=== PATIENT | female | born 1955 ===

== ENCOUNTER 2017-04-05 19:12 | Emergency (ER) | payer MEDICAID ==
[2017-04-05 19:12] VITALS: BMI 27.3
[2017-04-05 19:30] VITALS: RESP 18
[2017-04-05 20:14] LABS: BASO # 0.1 K/uL (0.0-0.2); BASO % 0.8 % (0.0-2.0); EOS # 0.2 K/uL (0.0-0.7); EOS % 1.7 % (0.0-4.0); HEMOGLOBIN 12.3 g/dL (11.0-16.0); LYMPH # 5.2 K/uL (1.0-4.3); LYMPH % 43.8 % (20.0-40.0); MEAN CELL VOLUME 88.2 fL (81.0-99.0); MEAN CORPUSCULAR HEMOGLOBIN 30.3 pg (27.0-31.0); MEAN CORPUSCULAR HGB CONC 34.4 g/dL (33.0-37.0); MEAN PLATELET VOLUME 9.4 fL (7.2-11.7); MONO # 0.5 K/uL (0.0-0.8); MONO % 3.9 % (0.0-10.0); NEUT # 5.9 K/uL (1.8-7.0); NEUT % 49.8 % (50.0-75.0); NRBC % 0.1 % (0.0-2.0); RBC 4.06 Mil/uL (3.80-5.20); RED CELL DISTRIBUTION WIDTH 13.6 % (11.5-14.5); WHITE BLOOD COUNT 11.9 K/uL (4.8-10.8)
[2017-04-05 20:21] LABS: ALBUMIN 4.6 g/dL (3.5-5.0)
[2017-04-05 20:23] LABS: SQUAMOUS EPITHIAL 1 /hpf (0-5); URINE BACTERIA RARE (<OCC); URINE BILIRUBIN NEGATIVE (NEGATIVE); URINE BLOOD NEGATIVE (NEGATIVE); URINE CLARITY Clear (Clear); URINE COLOR Yellow (YELLOW); URINE GLUCOSE (UA) NORMAL (Normal); URINE LEUKOCYTE ESTERASE 2+ Leu/uL (Negative); URINE NITRATE POSITIVE (NEGATIVE); URINE PROTEIN NEGATIVE (NEGATIVE); URINE UROBILINOGEN NORMAL mg/dL (0.2-1.0)
[2017-04-05 20:24] LABS: ALB/GLOB RATIO 1.4 (1.0-2.1); ALT/SGPT 46 U/L (9-52); AST/SGOT 28 U/L (14-36); BLOOD UREA NITROGEN 15 mg/dL (7-17); GFR AFRICAN-AMERICAN > 60; GFR NON-AFRICAN AMERICAN > 60
[2017-04-05 20:25] LABS: CALCIUM 9.7 mg/dl (8.6-10.4)
--- NOTE | 2017-04-05 22:12 | C.PDOC ---
History Of Present Illness 61 year old female who presents to the ER with a complaint of a dull aching headache. Patient had a Hx of HTN and reports good compliance with her medication. Denies chest pain, nausea, vomiting, or SOB. Time Seen by Provider: 04/05/17 19:49 Chief Complaint (Nursing): High Blood Pressure History Per: Patient History/Exam Limitations: no limitations Onset/Duration Of Symptoms: Days Current Symptoms Are (Timing): Still Present Associated Symptoms: denies: Chest Pain, Dyspnea, Dizziness Quality Of Symptoms: Asymptomatic Exacerbating Factor(s): Pos: None Recent travel outside of the [place]: No Past Medical History Reviewed: Historical Data, Nursing Documentation, Vital Signs Vital Signs: Last Vital Signs Temp 98.0 F 04/05/17 22:20 Pulse 70 04/05/17 22:20 Resp 18 04/05/17 22:20 BP 134/78 04/05/17 22:20 Pulse Ox 100 04/05/17 22:20 - Medical History PMH: HTN, Hypercholesterolemia, Hyperlipidemia Surgical History: No Surg Hx Family History: States: Unknown Family Hx - Social History Hx Alcohol Use: No - Immunization History Hx Tetanus Toxoid Vaccination: No Hx Influenza Vaccination: No Hx Pneumococcal Vaccination: No Review Of Systems Constitutional: Negative for: Fever, Chills Cardiovascular: Negative for: Chest Pain, Palpitations Respiratory: Negative for: Shortness of Breath Gastrointestinal: Negative for: Nausea, Vomiting Neurological: Positive for: Headache Physical Exam - Physical Exam Appears: Non-toxic, No Acute Distress Skin: Normal Color, Warm, Dry Head: Atraumatic, Normacephalic Eye(s): bilateral: Normal Inspection, PERRL, EOMI Oral Mucosa: Moist Neck: Normal, Supple Chest: Symmetrical, No Tenderness Cardiovascular: Rhythm Regular, No Murmur Respiratory: Normal Breath Sounds, No Rales, No Rhonchi, No Wheezing Gastrointestinal/Abdominal: Soft, No Tenderness Neurological/Psych: Oriented x3, Normal Speech, Normal Cognition ED Course And Treatment - Laboratory Results Result Diagrams: 04/05/17 20:08 04/05/17 20:08 Lab Interpretation: Abnormal (mild leukocytosis) ECG: Interpreted By Wy ECG Rhythm: Sinus Rhythm ECG Interpretation: Normal Rate From EC O2 Sat by Pulse Oximetry: 99 Pulse Ox Interpretation: Normal Progress Note: AMLODIPINE, TYLENOL, TORADOL iv Reevaluation Time: 22:16 Reassessment Condition: Improved Medical Decision Making Medical Decision Making: mild headache without neurological symptoms improved with addition labetolol PO Add Amlodipine PO and f/u with PMD LOW susp of CVA- head CT deferred Disposition Doctor Will See Patient In The: Office Counseled Patient/Family Regarding: Studies Performed, Diagnosis - Disposition Referrals: Shaik Hyde MD [Staff Provider] - Disposition: HOME/ ROUTINE Disposition Time: 22:17 Condition: GOOD Additional Instructions: Sigue Ibuprofeno 600 mg o' Tylenol 975 mg para stroud shana de romain, cada 6 horas Sigue Amlodipina 5 mg diario EN ADDICION' DEL Irbesartan [address] Hyde en menos de 2 semanas para checkar stroud pression marilyn Prescriptions: amLODIPine [Norvasc] 5 mg PO DAILY #30 tab Instructions: Diabetes Mellitus Type 2 in Adults (ED), Acute Headache (ED), Hypertension (ED) Forms: [employer] (Macanese) Print Language: KISWAHILI - Clinical Impression Clinical Impression: Hypertension, Diabetes - Scribe Statement The provider has reviewed the documentation as recorded by the Scribe Juan Carlos Prasad All medical record entries made by the Scribe were at my direction and personally dictated by me. I have reviewed the chart and agree that the record accurately reflects my personal performance of the history, physical exam, medical decision making, and the department course for this patient. I have also personally directed, reviewed, and agree with the discharge instructions and disposition.
[2017-04-05 22:21] VITALS: BP 134/78; PULSE 70; TEMP 98
[2017-04-06 03:13] VITALS: O2SAT 99
--- NOTE | 2017-04-06 07:51 | RAD ---
HISTORY: code stroke COMPARISON: 02/10/2016 FINDINGS: LUNGS: Mild venous congestion. Right hilar prominence. Patchy increased markings at the left lung base with questionable trace left pleural effusion. PLEURA: As above. CARDIOVASCULAR: Normal. OSSEOUS STRUCTURES: No significant abnormalities. VISUALIZED UPPER ABDOMEN: Normal. OTHER FINDINGS: None. IMPRESSION: Mild venous congestion. Right hilar prominence. Patchy increased markings at the left lung base with questionable trace left pleural effusion.
--- NOTE | 2017-04-08 13:09 | CARD ---
APPROVED REPORT EKG Measurement Heart [id number] CO [id number] <Conclusion> Normal sinus rhythm Normal ECG
== END 2017-04-05 22:30 | disposition home or self-care (01) ==
LOC: C.ER 19:12
DX: I10 Essential (primary) hypertension (principal); E11.9 Type 2 diabetes mellitus without complications
CPT/HCPCS: 71010; 80053; 81001; 85025; 93005; 96374; 99285; J1885

== ENCOUNTER 2017-04-11 11:12 | Emergency (ER) | payer MEDICAID ==
[2017-04-11 11:13] VITALS: BMI 27.3
[2017-04-11 11:16] VITALS: TEMP 97.8
[2017-04-11 12:46] LABS: BASO # 0.1 K/uL (0.0-0.2); BASO % 0.8 % (0.0-2.0); EOS # 0.2 K/uL (0.0-0.7); EOS % 1.4 % (0.0-4.0); HEMATOCRIT 36.6 % (34.0-47.0); LYMPH # 4.6 K/uL (1.0-4.3); LYMPH % 39.2 % (20.0-40.0); MEAN CELL VOLUME 88.4 fL (81.0-99.0); MEAN CORPUSCULAR HEMOGLOBIN 29.4 pg (27.0-31.0); MEAN CORPUSCULAR HGB CONC 33.3 g/dL (33.0-37.0); MEAN PLATELET VOLUME 9.3 fL (7.2-11.7); MONO # 0.5 K/uL (0.0-0.8); MONO % 4.2 % (0.0-10.0); RED CELL DISTRIBUTION WIDTH 13.6 % (11.5-14.5); WHITE BLOOD COUNT 11.8 K/uL (4.8-10.8)
--- NOTE | 2017-04-11 12:49 | CT ---
PROCEDURE: CT HEAD WITHOUT CONTRAST. HISTORY: Headache/ dizziness COMPARISON: None available. TECHNIQUE: Axial computed tomography images were obtained through the head/brain without intravenous contrast. Radiation dose: Total exam DLP = 867.19 mGy-cm. This CT exam was performed using one or more of the following dose reduction techniques: Automated exposure control, adjustment of the mA and/or kV according to patient size, and/or use of iterative reconstruction technique. FINDINGS: HEMORRHAGE: No intracranial hemorrhage. BRAIN: No mass effect or edema. The calle-white matter differentiation appears intact. Please note that MRI with diffusion imaging is more sensitive in the detection of acute ischemic event. VENTRICLES: No hydrocephalus. CALVARIUM: Unremarkable. PARANASAL SINUSES: Unremarkable as visualized. No significant inflammatory changes. MASTOID AIR CELLS: Unremarkable as visualized. No inflammatory changes. OTHER FINDINGS: None. IMPRESSION: No acute intracranial pathology identified.
[2017-04-11 12:56] LABS: ALB/GLOB RATIO 1.3 (1.0-2.1); ALKALINE PHOSPHATASE 72 U/L (38-126); ALT/SGPT 37 U/L (9-52); AST/SGOT 37 U/L (14-36); BILIRUBIN,TOTAL 1.1 mg/dL (0.2-1.3); BLOOD UREA NITROGEN 18 mg/dL (7-17); CALCIUM 9.3 mg/dl (8.6-10.4); CARBON DIOXIDE 28 mmol/L (22-30); CHLORIDE 92 mmol/L (98-107); GFR AFRICAN-AMERICAN > 60; GLUCOSE,RANDOM 63 mg/dL (65-105); POTASSIUM 4.7 mmol/L (3.6-5.2); SODIUM 141 mmol/L (132-148); TOTAL PROTEIN 8.3 g/dL (6.3-8.3)
[2017-04-11 12:59] LABS: RBC URINE 1 /hpf (0-3); URINE BACTERIA RARE (<OCC); URINE BILIRUBIN NEGATIVE (NEGATIVE); URINE BLOOD NEGATIVE (NEGATIVE); URINE COLOR Yellow (YELLOW); URINE GLUCOSE (UA) NORMAL (Normal); URINE KETONE NEGATIVE (NEGATIVE); URINE LEUKOCYTE ESTERASE 2+ Leu/uL (Negative); URINE PROTEIN NEGATIVE (NEGATIVE); URINE UROBILINOGEN NORMAL mg/dL (0.2-1.0); WBC URINE 18 /hpf (0-5)
--- NOTE | 2017-04-11 13:43 | C.PDOC ---
History Of Present Illness Patient is a 61 year old female presents to ED for evaluation of generalized weakness, headache, dizziness, and nausea since last night. Patient states that she has history of headaches but has not had headache recently. (+) photophobia. Otherwise, denies any chest pain, shortness of breath, cough, change in sensation, vomiting, abdominal pain, fever, chills, or any other associated symptoms at this time. Time Seen by Provider: 04/11/17 11:31 Chief Complaint (Nursing): Headache History Per: Patient History/Exam Limitations: no limitations Onset/Duration Of Symptoms: Days (1) Current Symptoms Are (Timing): Still Present Quality: Aching Associated Symptoms: Photophobia, Nausea. denies: Blurred Vision, Vomiting, Extremity Weakness Recent travel outside of the [place]: No Additional History Per: Patient Past Medical History Reviewed: Historical Data, Nursing Documentation, Vital Signs Vital Signs: Last Vital Signs Temp 97.8 F 04/11/17 11:15 Pulse 81 04/11/17 14:55 Resp 18 04/11/17 14:55 BP 112/58 L 04/11/17 14:55 Pulse Ox 97 04/11/17 14:55 - Medical History PMH: HTN, Hypercholesterolemia, Hyperlipidemia Family History: States: Unknown Family Hx - Social History Hx Alcohol Use: No - Immunization History Hx Tetanus Toxoid Vaccination: No Hx Influenza Vaccination: No Hx Pneumococcal Vaccination: No Review Of Systems Except As Marked, All Systems Reviewed And Found Negative. Constitutional: Positive for: Weakness. Negative for: Fever, Chills Cardiovascular: Negative for: Chest Pain, Palpitations, Light Headedness Respiratory: Negative for: Cough, Shortness of Breath Gastrointestinal: Positive for: Nausea. Negative for: Vomiting, Abdominal Pain , Diarrhea Skin: Negative for: Rash, Bruising Neurological: Positive for: Headache, Dizziness. Negative for: Weakness, Numbness Physical Exam - Physical Exam Appears: Non-toxic, Other (uncomfortable) Skin: Normal Color, Warm, Dry Head: Atraumatic, Normacephalic Eye(s): bilateral: EOMI, Other (photophobic) Oral Mucosa: Moist Neck: Normal ROM, Supple Cardiovascular: Rhythm Regular, No Murmur Respiratory: Normal Breath Sounds, No Rales, No Rhonchi, No Wheezing Gastrointestinal/Abdominal: Soft, No Tenderness Extremity: Bilateral: Atraumatic, Normal ROM Neurological/Psych: Oriented x3, Normal Speech, Normal Cognition, Other (neuro intact, no focal deficits) ED Course And Treatment - Laboratory Results Result Diagrams: 04/11/17 12:41 04/11/17 12:41 ECG: Interpreted By Me, Viewed By Me ECG Rhythm: Sinus Rhythm ECG Interpretation: No Acute Changes Rate From EC (bpm) O2 Sat by Pulse Oximetry: 100 (RA) Pulse Ox Interpretation: Normal - CT Scan/US Head CT Other Rad Studies (CT/US): Read By Radiologist, Radiology Report Reviewed CT/US Interpretation: FINDINGS: HEMORRHAGE: No intracranial hemorrhage. BRAIN : No mass effect or edema. The calle-white matter differentiation appears intact. Please note that MRI with diffusion imaging is more sensitive in the detection of acute ischemic event. VENTRICLES: No hydrocephalus. CALVARIUM: Unremarkable. PARANASAL SINUSES: Unremarkable as visualized. No significant inflammatory changes. MASTOID AIR CELLS: Unremarkable as visualized. No inflammatory changes. OTHER FINDINGS: None. IMPRESSION: No acute intracranial pathology identified. Progress Note: Blood work, urinalysis, EKG, head CT ordered and reviewed. Patient was treated with Reglan. On reassessment, patient is resting comfortably , reports feeling better, with improvement of headache. No neurologic deficit, rash, fever, or nuchal rigidity. Patient was instructed to follow up with physician/clinic in 1-2 days. Disposition - Disposition Disposition: HOME/ ROUTINE Disposition Time: 15:11 Condition: STABLE Additional Instructions: Follow up with PMD within 1-2 days. Return to ED if feel worse. Prescriptions: Metoclopramide [Reglan] 1 tab PO TID PRN #25 tab PRN Reason: Headache Instructions: General Headache (ED) Forms: [employer] [employer] (Qatari) - Clinical Impression Clinical Impression: Headache - PA / COMPUTER SUPPORT ANALYST / Resident Statement MD/DO has reviewed & agrees with the documentation as recorded. - Scribe Statement The provider has reviewed the documentation as recorded by the Griseliblon Silva All medical record entries made by the Scribe were at my direction and personally dictated by me. I have reviewed the chart and agree that the record accurately reflects my personal performance of the history, physical exam, medical decision making, and the department course for this patient. I have also personally directed, reviewed, and agree with the discharge instructions and disposition.
[2017-04-11 13:44] VITALS: RESP 18
[2017-04-11 14:56] VITALS: BP 112/58; PULSE 81
[2017-04-11 15:13] VITALS: O2SAT 100
--- NOTE | 2017-04-23 20:02 | CARD ---
APPROVED REPORT EKG Measurement Heart [id number] [place] 164P5 [id number] <Conclusion> Normal sinus rhythm Minimal voltage criteria for LVH, may be normal variant Borderline ECG
== END 2017-04-11 15:15 | disposition home or self-care (01) ==
LOC: C.ER 11:12
DX: R51 Headache (principal)
CPT/HCPCS: 70450; 80053; 81001; 82948; 85025; 85651; 96374; 99285; J2765

== ENCOUNTER 2017-10-28 18:03 | Emergency (ER) | payer MEDICAID ==
[2017-10-28 18:04] VITALS: BMI 27.3
--- NOTE | 2017-10-28 20:18 | C.PDOC ---
History Of Present Illness 62 year old female presents to the emergency department with complaints of elevated blood pressure that doesn't subside, an irregularly fast heartbeat, and pressure in the chest and neck. Sbe describes the chest pain as worse on her left side. Patient reports that she takes medication for her blood pressure. Patient reports that she is diabetic and takes medication. She denies coughing, fever, nausea, vomiting, diarrhea. She states that she has a family history of myocardial infarction. She confirms that she smokes about a pack every three days. Patient denies taking allergy or cold medications. Time Seen by Provider: 10/28/17 20:18 Chief Complaint (Nursing): Palpitations History Per: Patient, Family Onset/Duration Of Symptoms: Days (x1) Current Symptoms Are (Timing): Still Present Quality: Pressure (in the chest and neck area. ), "Pain" (in her neck) Associated Symptoms: denies: Nausea, Other (cough, fever, vomiting. ) Past Medical History Vital Signs: Last Vital Signs Temp 97.4 F L 10/28/17 23:17 Pulse 79 10/28/17 23:17 Resp 20 10/28/17 23:17 BP 126/67 10/28/17 23:17 Pulse Ox 96 10/28/17 23:25 - Medical History PMH: Diabetes, HTN, Hypercholesterolemia, Hyperlipidemia Surgical History: No Surg Hx Family History: States: No Known Family Hx - Social History Hx Tobacco Use: Yes (one pack every three days) Hx Alcohol Use: No Hx Substance Use: No - Immunization History Hx Tetanus Toxoid Vaccination: No Hx Influenza Vaccination: Yes Hx Pneumococcal Vaccination: No Review Of Systems Constitutional: Positive for: Sweats. Negative for: Fever Cardiovascular: Positive for: Chest Pain, Palpitations, Other (chest pressure) Respiratory: Negative for: Cough Gastrointestinal: Negative for: Nausea, Vomiting Neurological: Positive for: Headache Physical Exam - Physical Exam Appears: Non-toxic, No Acute Distress Skin: Normal Color Head: Normacephalic Eye(s): bilateral: Normal Inspection Neck: Supple Chest: Symmetrical, Tenderness (left side parasternal tenderness) Cardiovascular: Rhythm Regular Respiratory: Normal Breath Sounds Gastrointestinal/Abdominal: Normal Exam, Soft, No Tenderness Extremity: Normal ROM Neurological/Psych: Oriented x3, Normal Speech, Normal Cognition ED Course And Treatment - Laboratory Results Result Diagrams: 10/28/17 21:05 10/28/17 21:05 ECG: Interpreted By Me, Viewed By Me Interpretation Of ECG: normal sinus rhythm, normal intervals, normal ST segments , minimum voltage criteria LVH, no ectopy. Rate From EC O2 Sat by Pulse Oximetry: 96 (RA) Pulse Ox Interpretation: Normal - Radiology CXR: Interpreted by Me, Viewed By Me CXR Interpretation: Yes: No Acute Disease, Cardiomegaly (borderline). No: Infiltrates Medical Decision Making Medical Decision Making: Plan: EKG Labs CXR Disposition - Disposition Referrals: [facility] [Outside] Disposition: HOME/ ROUTINE Disposition Time: 04:30 Condition: FAIR Instructions: Costochondritis, Palpitations Forms: [employer] (Mauritian) Print Language: KOREAN - Clinical Impression Clinical Impression: Palpitations - Scribe Statement The provider has reviewed the documentation as recorded by the Neva Garcia Provider Attestation: All medical record entries made by the Griselibe were at my direction and personally dictated by me. I have reviewed the chart and agree that the record accurately reflects my personal performance of the history, physical exam, medical decision making, and the department course for this patient. I have also personally directed, reviewed, and agree with the discharge instructions and disposition.
[2017-10-28 21:09] LABS: BASO # 0.1 K/uL (0.0-0.2); EOS # 0.1 K/uL (0.0-0.7); EOS % 0.8 % (0.0-4.0); LYMPH # 5.1 K/uL (1.0-4.3); LYMPH % 38.7 % (20.0-40.0); MEAN CELL VOLUME 89.8 fL (81.0-99.0); MEAN CORPUSCULAR HEMOGLOBIN 30.5 pg (27.0-31.0); MEAN PLATELET VOLUME 9.1 fL (7.2-11.7); MONO # 0.5 K/uL (0.0-0.8); NEUT # 7.4 K/uL (1.8-7.0); NEUT % 55.5 % (50.0-75.0); RBC 3.94 Mil/uL (3.80-5.20); RED CELL DISTRIBUTION WIDTH 13.3 % (11.5-14.5); WHITE BLOOD COUNT 13.3 K/uL (4.8-10.8)
[2017-10-28 21:21] LABS: ALB/GLOB RATIO 1.3 (1.0-2.1); ALBUMIN 4.6 g/dL (3.5-5.0); ALT/SGPT 40 U/L (9-52); AST/SGOT 25 U/L (14-36); BLOOD UREA NITROGEN 22 mg/dL (7-17); GFR AFRICAN-AMERICAN > 60; GFR NON-AFRICAN AMERICAN > 60
[2017-10-28 23:18] VITALS: BP 126/67; PULSE 79; RESP 20; TEMP 97.4
[2017-10-28 23:26] VITALS: O2SAT 96
--- NOTE | 2017-10-29 09:04 | RAD ---
PROCEDURE: CHEST RADIOGRAPH, 1 VIEW HISTORY: Chest pain COMPARISON: 04/05/2017. FINDINGS: LUNGS: The lungs are clear. PLEURA: No pneumothorax or pleural fluid seen. CARDIOVASCULAR: Normal. OSSEOUS STRUCTURES: No significant abnormalities. VISUALIZED UPPER ABDOMEN: Normal. OTHER FINDINGS: None. IMPRESSION: No active pulmonary disease.
--- NOTE | 2017-10-31 22:23 | CARD ---
APPROVED REPORT EKG Measurement Heart [id number] [place] 158P31 [id number] <Conclusion> Normal sinus rhythm Minimal voltage criteria for LVH, may be normal variant Borderline ECG
== END 2017-10-28 23:29 | disposition home or self-care (01) ==
LOC: C.ER 18:03
DX: R00.2 Palpitations (principal)

== ENCOUNTER 2018-01-06 20:47 | Emergency (ER) | payer MEDICAID ==
[2018-01-06 20:47] VITALS: BMI 27.3
[2018-01-06 21:51] VITALS: BP 160/80; PULSE 74; RESP 20; TEMP 98.1; O2SAT 99
== END 2018-01-06 22:56 | disposition left against medical advice (07) ==
LOC: C.ER 20:47
DX: Z02.89 Encounter for other administrative examinations (principal); I10 Essential (primary) hypertension

== ENCOUNTER 2018-07-08 10:17 | Emergency (ER) | payer MEDICAID ==
[2018-07-08 10:17] VITALS: BMI 27.3
[2018-07-08 10:34] VITALS: TEMP 98.9
[2018-07-08] MEDS ORDERED: Albuterol-Ipratrop 3 mg / 0.5 (3 ml) UD INH STA ×2 (11:04→11:40)
[2018-07-08] MEDS ORDERED: Albuterol-Ipratrop 3 mg / 0.5 (3 ml) UD ONE ×2 (11:11→11:50)
--- NOTE | 2018-07-08 11:44 | RAD ---
Date of service: 07/08/2018 HISTORY: cough, copd COMPARISON: No prior. TECHNIQUE: 10/28/2017 FINDINGS: LUNGS: No active pulmonary disease. PLEURA: No significant pleural effusion identified. No pneumothorax apparent. CARDIOVASCULAR: There is presence of aortic atherosclerotic calcification on x-ray. Mild cardiomegaly-left ventricular enlargement configuration-similar appearing . No significant appearing pulmonary vascular congestion. OSSEOUS STRUCTURES: Thoracic spondylosis-similar. Left shoulder arthrosis. VISUALIZED UPPER ABDOMEN: Normal. OTHER FINDINGS: Calcified mediastinal lymph nodes probable. IMPRESSION: No active disease. No interval pathology noted.
--- NOTE | 2018-07-08 12:31 | C.PDOC ---
History Of Present Illness 63 year old female presents to the ED for evaluation of dry non-productive cough for 2 weeks. Admits to smoking 7 cigarettes a day. Denies fever, headache, abdominal pain, nausea, vomiting, and any other associated symptoms. Time Seen by Provider: 07/08/18 10:58 Chief Complaint (Nursing): Cough, Cold, Congestion History Per: Patient History/Exam Limitations: no limitations Onset/Duration Of Symptoms: Days Current Symptoms Are (Timing): Still Present Past Medical History Reviewed: Historical Data, Nursing Documentation, Vital Signs Vital Signs: Last Vital Signs Temp 98.9 F 07/08/18 10:29 Pulse 91 H 07/08/18 10:29 Resp 20 07/08/18 10:29 BP 150/81 07/08/18 10:29 Pulse Ox 98 07/08/18 10:29 - Medical History PMH: Asthma, Diabetes, HTN, Hypercholesterolemia, Hyperlipidemia Family History: States: Unknown Family Hx - Social History Hx Tobacco Use: Yes (one pack every three days) Hx Alcohol Use: No Hx Substance Use: No - Immunization History Hx Tetanus Toxoid Vaccination: No Hx Influenza Vaccination: Yes Hx Pneumococcal Vaccination: No Review Of Systems Except As Marked, All Systems Reviewed And Found Negative. Constitutional: Negative for: Fever Respiratory: Positive for: Cough (dry, non-productive.) Gastrointestinal: Negative for: Nausea, Vomiting, Abdominal Pain Physical Exam - Physical Exam Appears: Well, Non-toxic, No Acute Distress Skin: Normal Color, Warm, Dry Head: Atraumatic, Normacephalic Eye(s): bilateral: Normal Inspection Chest: Symmetrical, No Deformity Cardiovascular: Rhythm Regular, No Murmur Respiratory: No Rales, No Rhonchi, Wheezing (scant. ), No Other ((-) egophony.) Neurological/Psych: Oriented x3, Normal Speech ED Course And Treatment O2 Sat by Pulse Oximetry: 98 (RA) Pulse Ox Interpretation: Normal - Other Rad CXR X-Ray: Viewed By Me, Read By Radiologist Interpretation: FINDINGS: LUNGS: No active pulmonary disease. PLEURA: No significant pleural effusion identified. No pneumothorax apparent. CARDIOVASCULAR: There is presence of aortic atherosclerotic calcification on x- ray. Mild cardiomegaly-left ventricular enlargement configuration-similar appearing. . No significant appearing pulmonary vascular congestion. OSSEOUS STRUCTURES: Thoracic spondylosis-similar. Left shoulder arthrosis. VISUALIZED UPPER ABDOMEN: Normal. OTHER FINDINGS: Calcified mediastinal lymph nodes probable. IMPRESSION: No active disease. No interval pathology noted. Medical Decision Making Medical Decision Making: Plan: -CXR Duoneb Nebulizer treatment. Pepcid Prednisone Progress/Update: Patient stable for discharge home. Prescribed Ventolin HFA, Aerochamber, Deltasone, Pepcid, and Duoneb. copd exacerbation no pna/pnx smoking counseled Disposition Doctor Will See Patient In The: Office Counseled Patient/Family Regarding: Studies Performed, Diagnosis - Disposition Referrals: Hanane Adkins MD [Medical Doctor] - Disposition: HOME/ ROUTINE Disposition Time: 12:31 Condition: GOOD Additional Instructions: Prednisona 40 mg diario por 4 summers mas (empesando Miercoles 07/09) Duoneb tratamientos inhaladas 2 ampulas, 5-7 veces al tammie Almaz de fumar patricia puede Prescriptions: Albuterol HFA [Ventolin HFA 90 mcg/actuation (8 g)] 2 puff IH Q4H PRN #1 puff PRN Reason: copd Albuterol/Ipratropium [Duoneb 3 MG/3 Ml-0.5 MG/3 Ml 3 Ml] 6 ml IH Q4H PRN #100 neb PRN Reason: asthma Famotidine [Pepcid] 20 mg PO HS #20 tab Prednisone [Deltasone] 40 mg PO DAILY #8 tablet Spacer, Inhalation [Aerochamber] 1 dev IH DAILY #1 dev Instructions: Chronic Obstructive Pulmonary Disease (COPD), Including Emphysema Forms: [employer] (Divehi) Print Language: THAI - Clinical Impression Clinical Impression: COPD (chronic obstructive pulmonary disease) - Scribe Statement The provider has reviewed the documentation as recorded by the Scribe (Tereza Oliva) Provider Attestation: All medical record entries made by the Scribe were at my direction and personally dictated by me. I have reviewed the chart and agree that the record accurately reflects my personal performance of the history, physical exam, medical decision making, and the department course for this patient. I have also personally directed, reviewed, and agree with the discharge instructions and disposition.
[2018-07-08 13:07] VITALS: BP 129/72; PULSE 95; RESP 22
[2018-07-08 17:32] VITALS: O2SAT 98
== END 2018-07-08 13:07 | disposition home or self-care (01) ==
LOC: C.ER 10:17
DX: J44.9 Chronic obstructive pulmonary disease, unspecified (principal); F17.210 Nicotine dependence, cigarettes, uncomplicated

== ENCOUNTER 2018-07-10 11:27 | Observation (INO) | payer BC, MEDICAID ==
[2018-07-10 11:27] VITALS: BMI 27.3
[2018-07-10] MEDS ORDERED: Sodium Chloride 0.9% 500 ML IV STA (13:08)
[2018-07-10] MEDS ORDERED: Albuterol 0.083% Inhal Sol (2.5 mg/3 mL) UD IH STA ×2 (13:13)
[2018-07-10] MEDS ORDERED: Albuterol-Ipratrop 3 mg / 0.5 (3 ml) UD INH STA (13:13)
[2018-07-10] MEDS ORDERED: Sodium Chloride 0.9% 0 ML ONE (13:32)
[2018-07-10 13:47] LABS: BASO # 0.1 K/uL (0.0-0.2); BASO % 0.3 % (0.0-2.0); EOS # 0.1 K/uL (0.0-0.7); EOS % 0.3 % (0.0-4.0); HEMOGLOBIN 12.3 g/dL (11.0-16.0); LYMPH # 4.8 K/uL (1.0-4.3); LYMPH % 26.6 % (20.0-40.0); MEAN CELL VOLUME 91.1 fL (81.0-99.0); MEAN CORPUSCULAR HEMOGLOBIN 31.5 pg (27.0-31.0); MEAN CORPUSCULAR HGB CONC 34.6 g/dL (33.0-37.0); MEAN PLATELET VOLUME 9.2 fL (7.2-11.7); MONO # 0.7 K/uL (0.0-0.8); MONO % 4.1 % (0.0-10.0); NEUT # 12.3 K/uL (1.8-7.0); NEUT % 68.7 % (50.0-75.0); RBC 3.9 Mil/uL (3.80-5.20); RED CELL DISTRIBUTION WIDTH 13.7 % (11.5-14.5); WHITE BLOOD COUNT 17.9 K/uL (4.8-10.8)
[2018-07-10] MEDS ORDERED: Sodium Chloride 0.9% 500 ML IV ONE (13:49)
--- NOTE | 2018-07-10 13:51 | C.PDOC ---
History Of Present Illness 63 y/o female,w/PMhx of asthma, presents to the ER complaining of persistent productive cough which has been becoming gradually worse over the past few months. Patient states that she was seen for similar symptoms in the ER 2 days ago, she was prescribed Prednisone, Nebulizers, and Pepcid. She notes that she smokes 6 cigarettes per day, however she has not smoked for the past 3 days.Denies having CP,SOB, fever, chills, nausea, and vomiting. Time Seen by Provider: 07/10/18 12:18 Chief Complaint (Nursing): Cough, Cold, Congestion History Per: Patient History/Exam Limitations: no limitations Onset/Duration Of Symptoms: Days Current Symptoms Are (Timing): Still Present Severity: Moderate Past Medical History Reviewed: Historical Data, Nursing Documentation, Vital Signs Vital Signs: Last Vital Signs Temp 99.3 F 07/10/18 11:48 Pulse 95 H 07/10/18 11:48 Resp 18 07/10/18 11:48 BP 147/79 07/10/18 11:48 Pulse Ox 98 07/10/18 11:48 - Medical History PMH: Asthma, Bronchitis, Diabetes, HTN, Hypercholesterolemia, Hyperlipidemia Other Surgeries: Hx of surgeries Family History: States: No Known Family Hx - Social History Hx Tobacco Use: Yes (one pack every three days) Hx Alcohol Use: No Hx Substance Use: No - Immunization History Hx Tetanus Toxoid Vaccination: No Hx Influenza Vaccination: Yes (2018) Hx Pneumococcal Vaccination: No Review Of Systems Except As Marked, All Systems Reviewed And Found Negative. Constitutional: Negative for: Fever, Chills Cardiovascular: Negative for: Chest Pain Respiratory: Positive for: Cough. Negative for: Shortness of Breath Gastrointestinal: Negative for: Nausea, Vomiting Physical Exam - Physical Exam Appears: Other (coughing) Skin: Normal Color, Warm, Dry Head: Atraumatic, Normacephalic Eye(s): bilateral: Normal Inspection Ear(s): Bilateral: Normal Nose: Normal Oral Mucosa: Moist Throat: Normal, No Erythema, No Exudate Neck: Supple Chest: Symmetrical Cardiovascular: Rhythm Regular Respiratory: No Rales, No Rhonchi, Wheezing Neurological/Psych: Oriented x3, Normal Speech ED Course And Treatment - Laboratory Results Result Diagrams: 07/10/18 13:44 07/10/18 13:44 O2 Sat by Pulse Oximetry: 98 (RA) Pulse Ox Interpretation: Normal - Other Rad CXR X-Ray: Viewed By Me, Read By Radiologist Interpretation: Date of service: 07/10/2018. HISTORY: SOB, wheezaing, cough. COMPARISON: Comparison chest dated 07/08/2018. TECHNIQUE: Chest PA and lateral. FINDINGS: LUNGS: Poor inspiration with low lung volumes, crowded bronchovascular markings and mild bibasilar atelectasis. PLEURA: No significant pleural effusion identified. No pneumothorax apparent. CARDIOVASCULAR: Mild aortic atherosclerotic calcification present. Normal cardiac size. No pulmonary vascular congestion.. Questionable small mediastinal/suprahilar calcified lymph node. OSSEOUS STRUCTURES: Mild multilevel degenerative spondylosis of the thoracic spine. VISUALIZED UPPER ABDOMEN: Normal. OTHER FINDINGS: None. IMPRESSION: Poor inspiration with low lung volumes, crowded bronchovascular markings and mild bibasilar atelectasis Progress Note: Labs and CXR ordered. Patient treated with Albuterol, Solu-Medrol IV, and IV Fluids. 16:40 After treatment with 3 nebulizers, patient still has SOB and wheezing. She is coughing every few minutes. Patient has minimal improvement of symptoms. Case discussed with . Patient will be admitted to Telemetry for observation and breathing treatments. 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 - Scribe Statement The provider has reviewed the documentation as recorded by the Neva Chamorro Provider Attestation All medical record entries made by the Scribe were at my direction and personally dictated by me. I have reviewed the chart and agree that the record accurately reflects my personal performance of the history, physical exam, medical decision making, and the department course for this patient. I have also personally directed, reviewed, and agree with the discharge instructions and disposition. Decision To Admit - Pt Status Changed To: Hospital Disposition Of: Observation - . Bed Request Type: Telemetry Admitting Physician: Freddy Johnson Patient Diagnosis: COPD exacerbation
[2018-07-10] MEDS ORDERED: Albuterol 0.083% Inhal Sol (2.5 mg/3 mL) UD ONE ×2 (13:54→14:59)
[2018-07-10] MEDS ORDERED: Albuterol-Ipratrop 3 mg / 0.5 (3 ml) UD ONE (13:54)
[2018-07-10 13:59] LABS: INR 1.1; PROTHROMBIN TIME 11.6 SECONDS (9.7-12.2)
--- NOTE | 2018-07-10 14:03 | RAD ---
Date of service: 07/10/2018 HISTORY: SOB, wheezaing, cough COMPARISON: Comparison chest dated 07/08/2018. TECHNIQUE: Chest PA and lateral FINDINGS: LUNGS: Poor inspiration with low lung volumes, crowded bronchovascular markings and mild bibasilar atelectasis PLEURA: No significant pleural effusion identified. No pneumothorax apparent. CARDIOVASCULAR: Mild aortic atherosclerotic calcification present. Normal cardiac size. No pulmonary vascular congestion.. Questionable small mediastinal/suprahilar calcified lymph node OSSEOUS STRUCTURES: Mild multilevel degenerative spondylosis of the thoracic spine VISUALIZED UPPER ABDOMEN: Normal. OTHER FINDINGS: None. IMPRESSION: Poor inspiration with low lung volumes, crowded bronchovascular markings and mild bibasilar atelectasis
[2018-07-10 14:24] LABS: ALB/GLOB RATIO 1.5 (1.0-2.1); ALBUMIN 5.2 g/dL (3.5-5.0); BLOOD UREA NITROGEN 21 mg/dL (7-17); CALCIUM 10.1 mg/dl (8.6-10.4); GFR NON-AFRICAN AMERICAN > 60
[2018-07-10 14:26] LABS: ALT/SGPT 84 U/L (9-52); AST/SGOT 76 U/L (14-36)
--- NOTE | 2018-07-10 18:13 | CP.PCM.PN ---
Subjective - Date & Time of Evaluation Date of Evaluation: 07/10/18 Time of Evaluation: 18:12 - Subjective Subjective: H&P dictated #[id number] Objective - Vital Signs/Intake and Output Vital Signs (last 24 hours): Temp Pulse Resp BP Pulse Ox 97.8 F 78 18 131/72 95 07/10/18 17:36 07/10/18 17:36 07/10/18 17:36 07/10/18 17:36 07/10/18 17:36 - Labs Labs: 07/10/18 13:44 07/10/18 13:44 PT 11.6 SECONDS (9.7-12.2) 07/10/18 13:44 INR 1.1 07/10/18 13:44 APTT 26 SECONDS (21-34) 07/10/18 13:44
[2018-07-10] MEDS ORDERED: Dextrose 50% SYRINGE Inj (50 ml) IV PRN (19:17)
[2018-07-10] MEDS ORDERED: Glucagon Recombinant 1 mg Inj IM PRN (19:17)
[2018-07-10 19:24] VITALS: RESP 20
[2018-07-10] MEDS: (Novolin R) Insulin Human Regular 100 units/ml vial SC SCH ×2 (19:30→21:09)
[2018-07-10] MEDS: MethylPREDNISolone 40 mg Vial IVP SCH (22:45)
[2018-07-11 01:19] LABS: SQUAMOUS EPITHIAL 1 /hpf (0-5); URINE BILIRUBIN NEGATIVE (NEGATIVE); URINE BLOOD NEGATIVE (NEGATIVE); URINE CLARITY Clear (Clear); URINE COLOR Colorless (YELLOW); URINE GLUCOSE (UA) 3+ mg/dL (Normal); URINE LEUKOCYTE ESTERASE NEG Leu/uL (Negative); URINE PROTEIN NEGATIVE (NEGATIVE); URINE UROBILINOGEN NORMAL mg/dL (0.2-1.0)
[2018-07-11] MEDS: Albuterol-Ipratrop 3 mg / 0.5 (3 ml) UD INH SCH ×4 (01:50→19:43)
--- NOTE | 2018-07-11 03:41 | HP ---
CHIEF COMPLAINT: Persistent cough with pleuritic chest pain and shortness of breath for one month. HISTORY OF PRESENT ILLNESS: Ms. White is a 63-year-old female with past medical history of diabetes mellitus, hypertension, hyperlipidemia, asthma who has been following up with Dr. Adkins as primary care physician, came into the emergency room with complaints of progressive worsening of cough with clear sputum, pleuritic chest pain, and shortness of breath which has been persistent for more than a month. The patient was evaluated in the emergency room 2 days ago and the patient was given prednisone and famotidine. After being treated with nebulizers, the patient was sent home. The patient returned into the emergency room today with persistent symptoms without any improvement in her symptoms. The patient claims that her symptoms started more than a month ago with fever and shortness of breath. Now, no fevers. She claims that she smokes but she stopped smoking about 3 days ago. Even after stopping smoking, she claims that her cough is persistent and not able to lie down flat at night keeping her up, and denies any headaches, dizziness. Denies any nausea, vomiting, abdominal pain, diarrhea, or constipation. Denies any urinary complaints. Denies any leg pain or leg cramps. Denies any neurologic symptoms. PAST MEDICAL HISTORY: As described, hypertension, diabetes mellitus, hyperlipidemia, asthma. PAST SURGICAL HISTORY: She underwent colon surgery. FAMILY HISTORY: Coronary artery disease in the father. PERSONAL HISTORY: She is single, having 5 children, lives alone. Unemployed. SOCIAL HISTORY: She smokes 7 cigarettes per day since she was 17 years old. Denies any alcohol or drug abuse. ALLERGIES: NO KNOWN DRUG ALLERGIES. MEDICATIONS: Her medications at home include Pepcid 20 mg p.o. at bedtime, DuoNeb high flow nebulizer, prednisone 40 mg daily, pravastatin 40 mg daily, metformin 1000 mg p.o. b.i.d., irbesartan 300 mg daily, NPH 45 units in the evening and 40 units in the morning, Norvasc 5 mg daily. REVIEW OF SYSTEMS: As described in history of present illness. All other systems reviewed and were found to be negative. PHYSICAL EXAMINATION: GENERAL: A middle-aged female, lying in bed, in no acute distress. VITAL SIGNS: Blood pressure 132/72, pulse 78, respirations 18, temperature 97.8 degrees Fahrenheit, O2 sat is 95% on room air. HEENT: Pupils are equal, round, and reacting to light and accommodation. Extraocular muscles are intact. No icterus. No oral thrush. No pharyngeal congestion. NECK: Supple. No JVD. LUNGS: Bilateral vesicular breath sounds. Bilateral wheezing heard. No crackles heard. CARDIOVASCULAR SYSTEM: S1, S2 present, regular. ABDOMEN: Soft, nontender. Bowel sounds present. No guarding. No rigidity. No rebound tenderness noted. CENTRAL NERVOUS SYSTEM: Alert, awake, and oriented x3. No focal deficits noted. EXTREMITIES: No edema. Palpable peripheral pulses. LABORATORY DATA: Labs done from the emergency room: WBC 17.9, hemoglobin 12.3, hematocrit 35.5, platelets 264. PT 11.6, INR 1.1, PTT 26. Sodium 140, potassium 4.5, chloride 102, bicarb 25, BUN 21, creatinine 0.5, glucose 178, calcium 10.1, magnesium 1.9, total bilirubin 1.1, AST 76, ALT 84, alkaline phosphatase 74, total protein 8.7, albumin 5.2. Chest x-ray negative for any infiltrate, mild bibasilar atelectasis, crowded bronchovascular markings. EKG, normal sinus rhythm at 75 beats per minute, no acute ST-T changes noted. ASSESSMENT: A middle-aged female with history of hypertension, diabetes mellitus, hyperlipidemia, asthma, admitted for persistent symptoms of cough with clear sputum, pleuritic chest pain, and wheezing, persistent, improved per nebulizer treatment. 1. Acute bronchitis with bronchospasm, rule out infiltrate. 2. Asthma with chronic obstructive pulmonary disease exacerbation. 3. Hypertension. 4. Diabetes mellitus. 5. Hyperlipidemia. PLAN: The patient is being admitted to telemetry. I will continue with nebulizer treatments, Solu-Medrol 40 mg IV every 8 hours, Singulair 10 mg daily, Protonix for GI prophylaxis. Give Rocephin and Zithromax pending culture results, legionella and mycoplasma titers. Blood pressure is stable, continue with irbesartan 300 mg daily and amlodipine 5 mg daily. Continue with Crestor 10 mg p.o. at bedtime. Sugars are running high, continue with metformin 1000 mg p.o. b.i.d., and NPH insulin 45 units in the evening and 40 units in the morning. Do Accu-cheks q.a.c. and at bedtime. We will check CT scan of the chest to rule out any infiltrate. We will obtain pulmonary evaluation. Freddy Johnson MD
[2018-07-11] MEDS: MethylPREDNISolone 40 mg Vial IVP SCH ×3 (05:03→21:20)
[2018-07-11] MEDS: (Novolin R) Insulin Human Regular 100 units/ml vial SC SCH ×4 (08:55→21:10)
[2018-07-11 08:56] LABS: BASO % 0.2 % (0.0-2.0); HEMOGLOBIN 12.1 g/dL (11.0-16.0); LYMPH # 2.8 K/uL (1.0-4.3); LYMPH % 14.5 % (20.0-40.0); MEAN CELL VOLUME 90.5 fL (81.0-99.0); MEAN CORPUSCULAR HEMOGLOBIN 31.2 pg (27.0-31.0); MEAN CORPUSCULAR HGB CONC 34.4 g/dL (33.0-37.0); MEAN PLATELET VOLUME 9.7 fL (7.2-11.7); MONO # 0.4 K/uL (0.0-0.8); MONO % 2.1 % (0.0-10.0); NEUT # 16.1 K/uL (1.8-7.0); NEUT % 83.2 % (50.0-75.0); RBC 3.87 Mil/uL (3.80-5.20); RED CELL DISTRIBUTION WIDTH 13.6 % (11.5-14.5); WHITE BLOOD COUNT 19.4 K/uL (4.8-10.8)
[2018-07-11 09:16] LABS: ALB/GLOB RATIO 1.5 (1.0-2.1); ALT/SGPT 94 U/L (9-52); AST/SGOT 61 U/L (14-36); BLOOD UREA NITROGEN 21 mg/dL (7-17); CALCIUM 10.1 mg/dl (8.6-10.4); GFR NON-AFRICAN AMERICAN > 60; HDL CHOLESTEROL 54 mg/dL (30-70)
[2018-07-11 09:27] LABS: LDL CHOLESTEROL 166 mg/dL (0-129)
--- NOTE | 2018-07-11 09:47 | CT ---
Date of service: 07/11/2018 PROCEDURE: CT Chest without contrast HISTORY: r/o infiltrate COMPARISON: None available. TECHNIQUE: Contiguous axial images were obtained through the chest without intravenous contrast enhancement. Sagittal and coronal reconstructions were performed. Radiation dose: Total exam DLP = 469.11 mGy-cm. This CT exam was performed using one or more of the following dose reduction techniques: Automated exposure control, adjustment of the mA and/or kV according to patient size, and/or use of iterative reconstruction technique. FINDINGS: LUNGS: There are linear shape opacities at the lower lobes/lung bases likely represents scar tissue or atelectasis. No evidence of consolidation in the upper lobes. There is 5 millimeter calcified nodule at the left upper lobe likely represent calcified granuloma. MEDIASTINUM: Unremarkable thoracic aorta. No aneurysm. The heart is mildly enlarged. Main pulmonary artery unremarkable. No vascular congestion. No lymphadenopathy. No aortic atherosclerotic calcification. PLEURA: No pleural fluid. No pneumothorax. BONES: No fracture. No destructive lesion. UPPER ABDOMEN: Grossly unremarkable. OTHER FINDINGS: The thyroid gland is normal in size. IMPRESSION: No CT evidence of pneumonia. Linear opacities at the lung bases likely scar tissue or atelectasis. Mild cardiomegaly.
[2018-07-11 09:55] LABS: LEGIONELLA AG URINE NEGATIVE (NEGATIVE)
[2018-07-11] MEDS ORDERED: Pneumococcal 23-Valent Vaccine IM ONE (10:00)
[2018-07-11] MEDS: (Novolin N) Insulin Human Isophane (NPH) 100 u/ml 10 ml vial SC SCH ×2 (10:54→17:30)
[2018-07-11] MEDS: Enoxaparin 40 mg Syringe SC SCH (10:55)
[2018-07-11] MEDS: Azithromycin 500 MG in Sodium Chloride 0.9% 250 ML IVPB SCH (10:58)
--- NOTE | 2018-07-11 11:01 | CP.PCM.PN ---
Subjective - Date & Time of Evaluation Date of Evaluation: 07/11/18 Time of Evaluation: 11:01 - Subjective Subjective: Progress note dictated #[id number] Objective - Vital Signs/Intake and Output Vital Signs (last 24 hours): Temp Pulse Resp BP Pulse Ox 98.1 F 81 20 136/58 L 95 07/11/18 07:55 07/11/18 08:02 07/11/18 07:55 07/11/18 07:55 07/11/18 08:02 Intake and Output: 07/11/18 07/11/18 06:59 18:59 Intake Total 1000 420 Balance 1000 420 - Medications Medications: Current Medications Albuterol/Ipratropium (Duoneb 3 Mg/0.5 Mg (3 Ml) Ud) 3 ml INH RQ6 [facility] Last Admin: 07/11/18 08:09 Dose: 3 ml Amlodipine Besylate (Norvasc) 5 mg PO DAILY [facility] Last Admin: 07/11/18 10:54 Dose: 5 mg Enoxaparin Sodium (Lovenox) 40 mg SC DAILY [facility] Last Admin: 07/11/18 10:55 Dose: 40 mg Azithromycin 500 mg/ Sodium (Chloride) 250 mls @ 250 mls/hr IVPB DAILY [facility]; Protocol Last Admin: 07/11/18 10:58 Dose: 250 mls/hr Ceftriaxone Sodium 1 gm/ (Sodium Chloride) 100 mls @ 100 mls/hr IVPB DAILY [facility]; Protocol Last Admin: 07/11/18 09:53 Dose: 100 mls/hr Insulin Human NPH (Novolin N) 40 unit SC QAM [facility] Last Admin: 07/11/18 10:54 Dose: 40 unit Insulin Human NPH (Novolin N) 45 unit SC QPM [facility] Insulin Human Regular (Novolin R) 0 unit SC ACHS [facility]; Protocol Last Admin: 07/11/18 08:55 Dose: 3 units Losartan Potassium (Cozaar) 100 mg PO DAILY [facility] Last Admin: 07/11/18 10:54 Dose: 100 mg Metformin HCl (Glucophage) 1,000 mg PO BID [facility] Last Admin: 07/11/18 10:54 Dose: 1,000 mg Metformin HCl (Glucophage) 1,000 mg PO BID [facility] Methylprednisolone (Solu-Medrol) 40 mg IVP Q8H [facility] Last Admin: 07/11/18 05:03 Dose: 40 mg Montelukast Sodium (Singulair) 10 mg PO HS [facility] Last Admin: 07/10/18 22:45 Dose: 10 mg Pantoprazole Sodium (Protonix Inj) 40 mg IVP DAILY [facility] Last Admin: 07/11/18 10:54 Dose: 40 mg Rosuvastatin Calcium (Crestor) 10 mg PO HS [facility] Last Admin: 07/10/18 22:45 Dose: 10 mg - Labs Labs: 07/11/18 08:00 07/11/18 08:00 PT 11.6 SECONDS (9.7-12.2) 07/10/18 13:44 INR 1.1 07/10/18 13:44 APTT 26 SECONDS (21-34) 07/10/18 13:44
[2018-07-11 11:16] LABS: MYCOPLASMA PNEUMONIAE IGM NEGATIVE (NEGATIVE)
[2018-07-11] MEDS ORDERED: Promethazine DM 6.25 mg-15 mg/5 ml Syrup PO PRN (12:00)
--- NOTE | 2018-07-11 20:28 | PN ---
DATE: 07/11/2018 SUBJECTIVE: The patient was seen and examined at bedside. The patient is still complaining of cough with clear sputum and pleuritic chest pain, but sneezing is less. Denies any other complaints of fever, nausea, vomiting or abdominal pain. All other systems reviewed and were found to be negative. PHYSICAL EXAMINATION: GENERAL: Middle-aged female, lying in bed, in no acute distress. VITAL SIGNS: Blood pressure 136/58, pulse 70, respiration 20, temperature 98.1 degrees Fahrenheit, O2 sats 97% on room air. HEENT: Pupils equal, round, and reacting to light and accommodation. Extraocular muscles are intact. No icterus. No pallor. No oral thrush. NECK: Supple. No JVD. LUNGS: Bilateral vesicular breath sounds. No wheezing. No rhonchi. CARDIOVASCULAR SYSTEM: S1 and S2 present, regular. ABDOMEN: Soft and nontender. Bowel sounds present. No guarding. No rigidity. No rebound tenderness noted. CENTRAL NERVOUS SYSTEM: Alert, awake, and oriented x3. No focal deficits noted. EXTREMITIES: No edema. Palpable peripheral pulses. MEDICATIONS: Include DuoNeb every 6 hours, amlodipine 5 mg daily, azithromycin 500 mg IV daily, Rocephin 1 g daily, Lovenox 40 mg subcu daily, insulin 40 units subcu every morning and 45 units every evening sliding scale coverage, Cozaar 100 mg daily, metformin 1000 mg p.o. b.i.d., Solu-Medrol 40 mg IV every 12 hours, Singulair 10 mg daily, Protonix 40 mg daily, Phenergan 5 mL p.o. every 6 hours p.r.n., Crestor 10 mg p.o. at bedtime. LABORATORY DATA: Labs done from this morning: WBC 19.4, hemoglobin 12.1, hematocrit 35.1, platelets 319. Sodium 137. potassium 4, chloride 99, bicarb 21, BUN 21, creatinine 0.6. Glucose 380 and 347. Hemoglobin A1c 8. Calcium 10.1, 3.6, magnesium 1.9. Total bili 0.8, AST 61, ALT 94, alkaline phosphate 81, total protein 8.4, albumin 5. Cholesterol 270, triglyceides 216. TSH 0.27. UA: 3+ glucose, Legionella negative, mycoplasma negative. CT chest is negative for any pneumonia. Linear opacities at the lung bases likely scar tissue or atelectasis. Mild cardiomegaly. EKG done on admission consisting with normal sinus rhythm at 75 beats per minute, no acute ST-T changes noted. ASSESSMENT AND PLAN: Elderly female with history of hypertension, hyperlipidemia, diabetes mellitus, asthma. Admitted for acute bronchitis with bronchospasm, pneumonia ruled out by CT, asthma exacerbation. We will continue with Solu-Medrol nebulizer treatments, Singulair. Give Protonix for gastrointestinal prophylaxis. Continue with empiric antibiotics with Rocephin and Zithromax. All the cultures are negative so far. Blood pressure is stable on current medications. Sugars are high as she is on prednisone. White blood cell count is elevated, probably secondary to steroids. Steroid dose is decreased from every 8 hours to every 12 hours. We will follow up with Pulmonary. Continue with deep venous thrombosis prophylaxis. Repeat labs in the morning. We will add further recommendations as her clinical course progresses. Freddy Johnson MD
--- NOTE | 2018-07-11 23:43 | CARD ---
APPROVED REPORT Date of service: 07/10/2018 EKG Measurement Heart [id number] <Conclusion> Normal sinus rhythm Normal ECG
[2018-07-12] MEDS: Albuterol-Ipratrop 3 mg / 0.5 (3 ml) UD INH SCH ×3 (08:00→20:36)
[2018-07-12 08:15] LABS: BASO # 0.1 K/uL (0.0-0.2); BASO % 0.3 % (0.0-2.0); EOS % 0.1 % (0.0-4.0); LYMPH # 2.5 K/uL (1.0-4.3); LYMPH % 14.8 % (20.0-40.0); MEAN CELL VOLUME 90.6 fL (81.0-99.0); MEAN CORPUSCULAR HGB CONC 34.2 g/dL (33.0-37.0); MEAN PLATELET VOLUME 9.7 fL (7.2-11.7); MONO # 0.7 K/uL (0.0-0.8); NEUT # 13.6 K/uL (1.8-7.0); NEUT % 80.8 % (50.0-75.0); RBC 3.55 Mil/uL (3.80-5.20); RED CELL DISTRIBUTION WIDTH 13.4 % (11.5-14.5); WHITE BLOOD COUNT 16.9 K/uL (4.8-10.8)
[2018-07-12 08:31] LABS: ALB/GLOB RATIO 1.6 (1.0-2.1); ALBUMIN 4.4 g/dL (3.5-5.0); ALT/SGPT 64 U/L (9-52); AST/SGOT 24 U/L (14-36); BLOOD UREA NITROGEN 27 mg/dL (7-17); CALCIUM 9.8 mg/dl (8.6-10.4); GFR NON-AFRICAN AMERICAN > 60
[2018-07-12] MEDS: (Novolin R) Insulin Human Regular 100 units/ml vial SC SCH ×4 (08:52→21:51)
--- NOTE | 2018-07-12 09:26 | CP.PCM.CON ---
History of Present Illness - History of Present Illness History of Present Illness: Patient is a 63-year-old female with PMHx of HTN, DM, HLD, and asthma who came to the ED with complaints of shortness of breath, cough with clear sputum production, and chest pain. History was obtained through daughter on the phone, and from chart review. She states that she was having cough, and SOB for more than a month for which she came to the ED 2 days ago, and given prednisone and famotidine. As her symptoms did not improve after discharge from ED, patient came back to the hospital with the same symptoms. She currently states that she her shortness of breath has improved, but still complains of cough with copious sputum production. Patient was resting comfortably in bed without any supplemental oxygen. She states that the nebulizer treatments have been helping her. Denies any fevers, chills, headaches, chest pain, or leg swelling currently. Chest CT 07/10 - No CT evidence of pneumonia. Linear opacities at the lung bases likely scar tissue or atelectasis. Mild cardiomegaly. CXR 07/10 - Crowded bronchovascular markings and mild bibasilar atelectasis PMHx: asthma, HTN, DM2, HLD PSHx: colon surgery Allergies: NKDA Family Hx: CAD in father Social Hx: smokes 7 cigarettes daily x46 years, denies alcohol or illicit drug use Review of Systems - Review of Systems All systems: reviewed and no additional remarkable complaints except (shortness of breath and cough) Past Patient History - Infectious Disease Hx of Infectious Diseases: None - Past Medical History & Family History Past Medical History?: Yes - Past Social History Smoking Status: Light Smoker < 10 Cigarettes Daily - CARDIAC Hx Hypercholesterolemia: Yes Hx Hypertension: Yes - PULMONARY Hx Asthma: Yes Hx Bronchitis: Yes - ENDOCRINE/METABOLIC Hx Endocrine Disorders: Yes Hx Diabetes Mellitus Type 2: Yes - INTEGUMENTARY Hx Dermatological Problems: Yes (SEE COMMENT) Other/Comment: EXCISION MASS OF BACK AND NECK AND RIGHT FLANK - MUSCULOSKELETAL/RHEUMATOLOGICAL Hx Musculoskeletal Disorders: Yes Hx Back Pain: Yes (HX: SCIATICA) - PSYCHIATRIC Hx Substance Use: No - SURGICAL HISTORY Hx Surgeries: Yes Other/Comment: Colon sx. - ANESTHESIA Hx Anesthesia: Yes Hx Anesthesia Reactions: No Meds Allergies/Adverse Reactions: Allergies Allergy/AdvReac Type Severity Reaction Status Date / Time No Known Allergies Allergy Verified 07/10/18 11:46 - Medications Medications: Current Medications Albuterol/Ipratropium (Duoneb 3 Mg/0.5 Mg (3 Ml) Ud) 3 ml INH RQ6 [facility] Last Admin: 07/11/18 19:43 Dose: 3 ml Amlodipine Besylate (Norvasc) 5 mg PO DAILY [facility] Last Admin: 07/11/18 10:54 Dose: 5 mg Enoxaparin Sodium (Lovenox) 40 mg SC DAILY [facility] Last Admin: 07/11/18 10:55 Dose: 40 mg Azithromycin 500 mg/ Sodium (Chloride) 250 mls @ 250 mls/hr IVPB DAILY [facility]; Protocol Last Admin: 07/11/18 10:58 Dose: 250 mls/hr Ceftriaxone Sodium 1 gm/ (Sodium Chloride) 100 mls @ 100 mls/hr IVPB DAILY [facility]; Protocol Last Admin: 07/11/18 09:53 Dose: 100 mls/hr Insulin Human NPH (Novolin N) 40 unit SC QAM [facility] Last Admin: 07/11/18 10:54 Dose: 40 unit Insulin Human NPH (Novolin N) 45 unit SC QPM [facility] Last Admin: 07/11/18 17:30 Dose: 45 units Insulin Human Regular (Novolin R) 0 unit SC ACHS [facility]; Protocol Last Admin: 07/11/18 21:10 Dose: Not Given Losartan Potassium (Cozaar) 100 mg PO DAILY [facility] Last Admin: 07/11/18 10:54 Dose: 100 mg Metformin HCl (Glucophage) 1,000 mg PO BID [facility] Last Admin: 07/11/18 17:31 Dose: 1,000 mg Methylprednisolone (Solu-Medrol) 40 mg IVP Q12 [facility] Last Admin: 07/11/18 21:20 Dose: 40 mg Montelukast Sodium (Singulair) 10 mg PO HS [facility] Last Admin: 07/11/18 21:20 Dose: 10 mg Pantoprazole Sodium (Protonix Inj) 40 mg IVP DAILY [facility] Last Admin: 07/11/18 10:54 Dose: 40 mg Pneumococcal Polyvalent Vaccine (Pneumovax 23 Vaccine) 0.5 ml IM .ONCE ONE Stop: 07/12/18 10:01 Promethazine HCl/Dextromethorphan (Phenergan Dm Syrup) 5 ml PO Q6H PRN PRN Reason: Cough Last Admin: 07/11/18 21:24 Dose: 5 ml Rosuvastatin Calcium (Crestor) 10 mg PO HS [facility] Last Admin: 07/11/18 21:20 Dose: 10 mg Physical Exam - Head Exam Head Exam: ATRAUMATIC, NORMOCEPHALIC - ENT Exam ENT Exam: Mucous Membranes Moist - Neck Exam Neck exam: Positive for: Normal Inspection - Respiratory Exam Respiratory Exam: Rhonchi, Wheezes - Cardiovascular Exam Cardiovascular Exam: REGULAR RHYTHM - GI/Abdominal Exam GI & Abdominal Exam: Normal Bowel Sounds Results - Vital Signs Recent Vital Signs: Last Vital Signs Temp 98 F 07/11/18 23:59 Pulse 71 07/12/18 07:39 Resp 20 07/11/18 23:59 BP 125/71 07/11/18 23:59 Pulse Ox 96 07/12/18 07:41 - Labs Result Diagrams: 07/12/18 08:03 07/12/18 08:03 Labs: Laboratory Results - last 24 hr 07/11/18 07/11/18 07/11/18 01:13 08:00 08:00 WBC RBC Hgb Hct MCV MCH MCHC RDW Plt Count MPV Neut % (Auto) Lymph % (Auto) [place] % (Auto) Eos % (Auto) Baso % (Auto) Neut # (Auto) Lymph # (Auto) [place] # (Auto) Eos # (Auto) Baso # (Auto) Sodium Potassium Chloride Carbon Dioxide Anion Gap BUN Creatinine Est GFR ( Amer) Est GFR (Non-Af Amer) POC Glucose (mg/dL) Random Glucose Hemoglobin A1c 8.0 H Calcium Total Bilirubin AST ALT Alkaline Phosphatase Total Protein Albumin Globulin Albumin/Globulin Ratio LDL Cholesterol Direct 166 H TSH 3rd Generation 0.27 L Ur L.pneumophila Ag Negative Mycoplasma pneumon IgM Negative 07/11/18 07/11/18 07/11/18 11:18 16:59 21:07 WBC RBC Hgb Hct MCV MCH MCHC RDW Plt Count MPV Neut % (Auto) Lymph % (Auto) [place] % (Auto) Eos % (Auto) Baso % (Auto) Neut # (Auto) Lymph # (Auto) [place] # (Auto) Eos # (Auto) Baso # (Auto) Sodium Potassium Chloride Carbon Dioxide Anion Gap BUN Creatinine Est GFR ( Amer) Est GFR (Non-Af Amer) POC Glucose (mg/dL) 380 H 326 H 323 H Random Glucose Hemoglobin A1c Calcium Total Bilirubin AST ALT Alkaline Phosphatase Total Protein Albumin Globulin Albumin/Globulin Ratio LDL Cholesterol Direct TSH 3rd Generation Ur L.pneumophila Ag Mycoplasma pneumon IgM 07/12/18 07/12/18 07/12/18 06:22 08:03 08:03 WBC 16.9 H RBC 3.55 L Hgb 11.0 Hct 32.2 L MCV 90.6 MCH 31.0 MCHC 34.2 RDW 13.4 Plt Count 243 MPV 9.7 Neut % (Auto) 80.8 H Lymph % (Auto) 14.8 L [place] % (Auto) 4.0 Eos % (Auto) 0.1 Baso % (Auto) 0.3 Neut # (Auto) 13.6 H Lymph # (Auto) 2.5 [place] # (Auto) 0.7 Eos # (Auto) 0.0 Baso # (Auto) 0.1 Sodium 136 Potassium 4.2 Chloride 101 Carbon Dioxide 23 Anion Gap 16 BUN 27 H Creatinine 0.7 Est GFR ( Amer) > 60 Est GFR (Non-Af Amer) > 60 POC Glucose (mg/dL) 279 H Random Glucose 291 H Hemoglobin A1c Calcium 9.8 Total Bilirubin 0.7 AST 24 ALT 64 H D Alkaline Phosphatase 76 Total Protein 7.1 Albumin 4.4 Globulin 2.8 Albumin/Globulin Ratio 1.6 LDL Cholesterol Direct TSH 3rd Generation Ur L.pneumophila Ag Mycoplasma pneumon IgM Assessment & Plan (1) Bronchitis Status: Acute Comment: continue IV antibiotics. Continue bronchodilators. Steroids. CAT scan of the chest reviewed with no infiltrate/pneumonia (2) Asthma exacerbation Status: Acute
[2018-07-12] MEDS: MethylPREDNISolone 40 mg Vial IVP SCH ×2 (09:35→21:51)
[2018-07-12] MEDS: Enoxaparin 40 mg Syringe SC SCH (09:35)
[2018-07-12] MEDS: (Novolin N) Insulin Human Isophane (NPH) 100 u/ml 10 ml vial SC SCH ×2 (09:36→18:17)
[2018-07-12] MEDS ORDERED: Pneumococcal 23-Valent Vaccine IM ONE (10:00)
[2018-07-12] MEDS: Azithromycin 500 MG in Sodium Chloride 0.9% 250 ML IVPB SCH (10:48)
--- NOTE | 2018-07-12 15:29 | CP.PCM.PN ---
Subjective - Date & Time of Evaluation Date of Evaluation: 07/12/18 Time of Evaluation: 15:29 - Subjective Subjective: Progress note dictated #[id number] Objective - Vital Signs/Intake and Output Vital Signs (last 24 hours): Temp Pulse Resp BP Pulse Ox 98 F 83 20 125/71 96 07/11/18 23:59 07/12/18 12:08 07/11/18 23:59 07/11/18 23:59 07/12/18 12:08 Intake and Output: 07/12/18 07/12/18 06:59 18:59 Intake Total 500 Balance 500 - Medications Medications: Current Medications Albuterol/Ipratropium (Duoneb 3 Mg/0.5 Mg (3 Ml) Ud) 3 ml INH RQ6 [facility] Last Admin: 07/12/18 13:40 Dose: 3 ml Amlodipine Besylate (Norvasc) 5 mg PO DAILY [facility] Last Admin: 07/12/18 09:34 Dose: 5 mg Enoxaparin Sodium (Lovenox) 40 mg SC DAILY [facility] Last Admin: 07/12/18 09:35 Dose: 40 mg Azithromycin 500 mg/ Sodium (Chloride) 250 mls @ 250 mls/hr IVPB DAILY [facility]; Protocol Last Admin: 07/12/18 10:48 Dose: 250 mls/hr Ceftriaxone Sodium 1 gm/ (Sodium Chloride) 100 mls @ 100 mls/hr IVPB DAILY [facility]; Protocol Last Admin: 07/12/18 09:33 Dose: 100 mls/hr Insulin Human NPH (Novolin N) 40 unit SC QAM [facility] Last Admin: 07/12/18 09:36 Dose: 40 unit Insulin Human NPH (Novolin N) 45 unit SC QPM [facility] Last Admin: 07/11/18 17:30 Dose: 45 units Insulin Human Regular (Novolin R) 0 unit SC ACHS [facility]; Protocol Last Admin: 07/12/18 12:45 Dose: 5 units Losartan Potassium (Cozaar) 100 mg PO DAILY [facility] Last Admin: 07/12/18 09:34 Dose: 100 mg Metformin HCl (Glucophage) 1,000 mg PO BID [facility] Last Admin: 07/12/18 09:34 Dose: 1,000 mg Methylprednisolone (Solu-Medrol) 40 mg IVP Q12 [facility] Last Admin: 07/12/18 09:35 Dose: 40 mg Montelukast Sodium (Singulair) 10 mg PO HS [facility] Last Admin: 07/11/18 21:20 Dose: 10 mg Pantoprazole Sodium (Protonix Inj) 40 mg IVP DAILY [facility] Last Admin: 07/12/18 09:35 Dose: 40 mg Promethazine HCl/Dextromethorphan (Phenergan Dm Syrup) 5 ml PO Q6H PRN PRN Reason: Cough Last Admin: 07/11/18 21:24 Dose: 5 ml Rosuvastatin Calcium (Crestor) 10 mg PO HS [facility] Last Admin: 07/11/18 21:20 Dose: 10 mg - Labs Labs: 07/12/18 08:03 07/12/18 08:03 PT 11.6 SECONDS (9.7-12.2) 07/10/18 13:44 INR 1.1 07/10/18 13:44 APTT 26 SECONDS (21-34) 07/10/18 13:44
[2018-07-12] MEDS: Promethazine DM 6.25 mg-15 mg/5 ml Syrup PO SCH (18:42)
--- NOTE | 2018-07-12 21:41 | PN ---
DATE: 07/12/2018 SUBJECTIVE: The patient seen and examined at bedside. The patient is still complaining of persistent cough with shortness of breath, less wheezing. Denies headaches and dizziness. Complaining of pleuritic chest pain. Complaining of constipation, claims that she did not have bowel movement in the past 5 days. PHYSICAL EXAMINATION: GENERAL: Middle-aged female, lying in bed, in no acute distress. VITAL SIGNS: Blood pressure 125/71, pulse 99, respirations 20, O2 saturations 96% on room air, temperature 98 degrees Fahrenheit. HEENT: Pupils equal, round, and reacting to light and accommodation. Extraocular muscles intact. No icterus. No pallor. No oral thrush. NECK: Supple. No JVD. LUNGS: Bilateral vesicular breath sounds. No wheezing. No rhonchi heard. CVS: S1 and S2 present, regular. ABDOMEN: Soft, nontender. Bowel sounds present. No guarding. No rigidity. No rebound tenderness noted. PAEDIATRIC PHYSIOTHERAPIST: Alert, awake, and oriented x3. No focal deficits noted. EXTREMITIES: No edema. Palpable peripheral pulses. MEDICATIONS: Include DuoNeb, azithromycin 500 mg IV daily, Rocephin 1 g IV daily, Lovenox 40 mg subcu daily, insulin 40 units subcu in the morning and 45 units in the evening, lactulose one dose, Cozaar 100 mg daily, metformin 1000 mg p.o. b.i.d., Solu-Medrol 40 mg IV every 12 hours, Singulair 10 mg p.o. at bedtime, Protonix 40 mg daily, Phenergan 5 mL p.o. every 6 hours p.r.n. cough, Crestor 10 mg p.o. at bedtime. LABORATORY DATA: Labs done from this morning, WBC 16.9, hemoglobin 11, hematocrit 32.2, platelets 243. Sodium 136, potassium 4.2, chloride 101, bicarbonate 23, BUN 27, creatinine 0.7, glucose 291, calcium 9.8. AST 64, ALT 24. Other LFTs within normal limits. Blood cultures negative so far. ASSESSMENT AND PLAN: Middle-aged female with history of hypertension, diabetes mellitus, hyperlipidemia, asthma, admitted for acute bronchitis, asthma exacerbation, constipation. The patient's blood pressure is stable on current medication. Accu-Cheks are high secondary to steroids. Continue with Solu-Medrol 40 mg intravenously every 12 hours, along with Singulair, DuoNebs, empiric antibiotics, Rocephin, and Zithromax. All the workup is negative so far. Continue with Protonix for gastrointestinal prophylaxis and Lovenox for deep venous thrombosis prophylaxis. We will give Lactulose for constipation. We will change cough medicine to every 6 hours. Pulmonary consult appreciated. Freddy Johnson MD
[2018-07-13] MEDS: Promethazine DM 6.25 mg-15 mg/5 ml Syrup PO SCH ×3 (00:06→12:59)
[2018-07-13 00:22] VITALS: O2SAT 97
[2018-07-13 07:36] VITALS: BP 146/60; TEMP 97.9
[2018-07-13] MEDS: Albuterol-Ipratrop 3 mg / 0.5 (3 ml) UD INH SCH ×2 (08:03→13:47)
[2018-07-13 08:13] VITALS: PULSE 90
[2018-07-13] MEDS: Azithromycin 500 MG in Sodium Chloride 0.9% 250 ML IVPB SCH (09:40)
[2018-07-13] MEDS: Enoxaparin 40 mg Syringe SC SCH (09:40)
[2018-07-13] MEDS: (Novolin N) Insulin Human Isophane (NPH) 100 u/ml 10 ml vial SC SCH (09:40)
[2018-07-13] MEDS: MethylPREDNISolone 40 mg Vial IVP SCH (09:41)
[2018-07-13] MEDS: (Novolin R) Insulin Human Regular 100 units/ml vial SC SCH ×2 (09:41→12:59)
--- NOTE | 2018-07-13 13:30 | CP.PCM.PN ---
Subjective - Date & Time of Evaluation Date of Evaluation: 07/13/18 Time of Evaluation: 13:30 - Subjective Subjective: Discharge summary dictated #[id number] Objective - Vital Signs/Intake and Output Vital Signs (last 24 hours): Temp Pulse Resp BP Pulse Ox 97.9 F 90 20 146/60 97 07/13/18 07:35 07/13/18 08:12 07/13/18 07:35 07/13/18 07:35 07/13/18 07:35 - Medications Medications: Current Medications Albuterol/Ipratropium (Duoneb 3 Mg/0.5 Mg (3 Ml) Ud) 3 ml INH RQ6 [facility] Last Admin: 07/13/18 08:03 Dose: 3 ml Amlodipine Besylate (Norvasc) 5 mg PO DAILY [facility] Last Admin: 07/13/18 09:41 Dose: 5 mg Enoxaparin Sodium (Lovenox) 40 mg SC DAILY [facility] Last Admin: 07/13/18 09:40 Dose: 40 mg Azithromycin 500 mg/ Sodium (Chloride) 250 mls @ 250 mls/hr IVPB DAILY [facility]; Protocol Last Admin: 07/13/18 09:40 Dose: 250 mls/hr Ceftriaxone Sodium 1 gm/ (Sodium Chloride) 100 mls @ 100 mls/hr IVPB DAILY [facility]; Protocol Last Admin: 07/13/18 09:40 Dose: 100 mls/hr Insulin Human NPH (Novolin N) 40 unit SC QAM [facility] Last Admin: 07/13/18 09:40 Dose: 40 unit Insulin Human NPH (Novolin N) 45 unit SC QPM [facility] Last Admin: 07/12/18 18:17 Dose: 45 units Insulin Human Regular (Novolin R) 0 unit SC ACHS [facility]; Protocol Last Admin: 07/13/18 12:59 Dose: 3 units Lactulose (Enulose) 30 gm PO HS PRN PRN Reason: Constipation Last Admin: 07/12/18 18:15 Dose: 30 gm Losartan Potassium (Cozaar) 100 mg PO DAILY [facility] Last Admin: 07/13/18 09:41 Dose: 100 mg Metformin HCl (Glucophage) 1,000 mg PO BID [facility] Last Admin: 07/13/18 09:41 Dose: 1,000 mg Methylprednisolone (Solu-Medrol) 40 mg IVP Q12 [facility] Last Admin: 07/13/18 09:41 Dose: 40 mg Montelukast Sodium (Singulair) 10 mg PO HS [facility] Last Admin: 07/12/18 21:51 Dose: 10 mg Pantoprazole Sodium (Protonix Inj) 40 mg IVP DAILY [facility] Last Admin: 07/13/18 09:41 Dose: 40 mg Promethazine HCl/Dextromethorphan (Phenergan Dm Syrup) 5 ml PO Q6H [facility] Last Admin: 07/13/18 12:59 Dose: 5 ml Rosuvastatin Calcium (Crestor) 10 mg PO HS [facility] Last Admin: 07/12/18 21:51 Dose: 10 mg - Labs Labs: 07/12/18 08:03 07/12/18 08:03 PT 11.6 SECONDS (9.7-12.2) 07/10/18 13:44 INR 1.1 07/10/18 13:44 APTT 26 SECONDS (21-34) 07/10/18 13:44
[2018-07-13] MEDS ORDERED: Pneumococcal 23-Valent Vaccine IM ONE (14:45)
--- NOTE | 2018-07-15 06:27 | DS ---
DISCHARGE DIAGNOSES: Asthma exacerbation, acute bronchitis, hypertension, diabetes mellitus, hyperlipidemia. HISTORY OF PRESENT ILLNESS: Ms. White is a 63-year-old female with past medical history of hypertension, diabetes mellitus, hyperlipidemia, asthma, who has been following up with Dr. Adkins, admitted for worsening cough with clear sputum, pleuritic chest pain. The patient was evaluated prior to ED visit and she was given prednisone and Pepcid. The patient had persistent symptoms. The patient came into ED for further evaluation. The patient was admitted for persistent symptoms and asthma exacerbation. Today, the patient is feeling better. Denies any headache, dizziness. Denies any chest pain, shortness of breath or wheezing, but persistently complaining of cough which is better than on admission. Denies any nausea, vomiting, abdominal pain, diarrhea, or constipation. Denies any urinary complaints. Denies any leg pains or leg cramps. Denies any other neurologic symptoms. PHYSICAL EXAMINATION: GENERAL: Middle-aged female, lying in bed, in no acute distress. VITAL SIGNS: Blood pressure 146/60, pulse 79, respirations 20, temperature 97.9 degrees Fahrenheit, O2 saturations 97% on room air. HEENT: Pupils are equal, round, and reacting to light and accommodation. Extraocular muscles are intact. No icterus. No pallor. No oral thrush. No pharyngeal congestion. NECK: Supple. No JVD. LUNGS: Bilateral vesicular breath sounds. No wheezing, no rhonchi. CARDIOVASCULAR SYSTEM: S1, S2 present, regular. ABDOMEN: Soft, nontender. Bowel sounds present. No guarding. No rigidity. No rebound tenderness noted. CENTRAL NERVOUS SYSTEM: Alert, awake, and oriented x3. No focal deficits noted. EXTREMITIES: No edema. Palpable peripheral pulses. LABORATORY DATA: Labs done from yesterday: WBC 16.9, hemoglobin 11, hematocrit 32.2, platelets 243. Sodium 136, potassium 4.2, chloride 101, bicarb 23, BUN 27, creatinine 0.7, glucose 291, calcium 9.8, AST 24, ALT 64, alkaline phosphatase 76. LDL is 166, cholesterol 270, triglycerides 216, HDL 54. Chest CT, negative for any infiltrate. HOSPITAL COURSE: The patient was admitted to the hospital for asthma exacerbation and acute bronchitis. The patient was started on Solu-Medrol, nebulizer treatment, and empiric antibiotics. The patient;s symptoms improved. The patient was evaluated by Pulmonary. The patient underwent CT of the chest which was negative for any infiltrates. The patient is clinically improving without any shortness of breath but with improving cough. The patient is anxious to go home and she is willing to follow up with her primary care physician. The patient was discharged and advised to return to the ED if any persistent or recurrent symptoms occur. CONDITION UPON DISCHARGE: The patient is alert, awake, oriented x3 and hemodynamically stable at the time of discharge. DISCHARGE INSTRUCTIONS: Follow up with PMD. Follow up with Oncology. DISCHARGE DIET: Low-sodium, low-cholesterol 1800 calorie ADA diet. ACTIVITY: As tolerated. DISCHARGE MEDICATIONS: Augmentin 875 mg p.o. b.i.d., lactulose 20 g p.o. nightly as needed, Medrol Dosepak, Singulair 10 mg daily, Phenergan cough syrup 5 mL p.o. every 6 hours as needed, and Protonix 40 mg daily. Advised to continue with her home medications. We will also refer to discharge medication list given at the time of discharge. Freddy Johnson MD
== END 2018-07-13 15:10 | disposition home or self-care (01) ==
LOC: C.ER 11:27 → C.6T 16:42 → C.9E 17:18 → C.5S 17:43 → INTOOBSV 07-13 12:10 → OBSVTOIN 07-13 12:10 → UNDODISIN 07-13 15:10
PROVIDERS: ADMIT Internal Medicine; ATTEND Internal Medicine
DX: J44.0 Chronic obstructive pulmonary disease with (acute) lower respiratory infection (principal); J45.901 Unspecified asthma with (acute) exacerbation; J44.1 Chronic obstructive pulmonary disease with (acute) exacerbation; J20.9 Acute bronchitis, unspecified; E11.9 Type 2 diabetes mellitus without complications; E78.00 Pure hypercholesterolemia, unspecified; F17.210 Nicotine dependence, cigarettes, uncomplicated; I10 Essential (primary) hypertension; K59.00 Constipation, unspecified
CPT/HCPCS: 36415; 71046; 71250; 80053; 80061; 81001; 82948; 83036; 83735; 84100; 84443; 85025; 85610; 85730; 86738; 87040; 87449; 90471; 90732; 93005; 94640; 96361; 96365; 96366; 96367; 96372; 96375; 96376; 99285; C9113; G0378; J0456; J0696; J1650; J2920; J2930; J7040; J7050

== ENCOUNTER 2018-09-17 11:57 | Outpatient (CLI) | payer MEDICAID | END 2018-09-17 11:58 | disposition home or self-care (01) | LOC: C.MAMMO 11:58 ==